=== PATIENT | female | born 1980 | race African-American/Black ===

== ENCOUNTER 2016-07-17 10:30 | Emergency (ER) | payer OTHER ==
[~2016-07-17] VITALS: Ht 154.9 cm; Wt 95.3 kg
--- NOTE | 2016-07-17 12:23 | ED GENERAL ADULT ---
History of Present Illness General Chief Complaint: General Adult Stated Complaint: GOLD, LOWER RT ABDOMINAL PAIN X 4 DAYS Source: patient Exam Limitations: no limitations Vital Signs & Intake/Output Vital Signs & Intake/Output Vital Signs Date Time Temp Pulse Resp B/P Pulse O2 O2 Flow FiO2 Ox Delivery Rate 07/17 1332 98.2 84 18 153/83 100 Room Air 07/17 1107 98.4 78 18 154/98 100 Room Air Allergies Coded Allergies: No Known Drug Allergies (07/17/16) Reconcile Medications No Known Home Medications Triage Note: C/O R SIDED ABODMINAL PAIN WITH NAUSEA X 4 DAYS. STATES PERIOD IS 2 WEEKS LATE. HOME TEST DONE 2 DAYS AGO WAS NEGATIVE. ALOS REPORTS INCREASED URINATION. Triage Nurses Notes Reviewed? yes Onset: Gradual Duration: day(s): (4) Timing: remote history Injury Environment: home Severity: moderate Severity Numbers: 4 No Modifying Factors: none : No Patient currently breastfeeds: No HPI: Patient is a 36-year-old female presenting to the emergency department with chief complaint of right lower quadrant pain 4 days that has been improving over the past 2 days. Pain currently 4 out of 10 and crampy in nature. She has reports she is late 2 weeks for her menstrual period. She took a test at home and it was negative. Denies any vaginal discharge patient does report urinary frequency but denies any dysuria. No hematuria. Chest reports a frontal and temporal headache as throbbing in nature currently mild, denies taking anything today to help with symptoms. She did take some Midol the other day which did not help. Denies any visual changes. No neck pain or fevers. Denies nausea vomiting. So eating and drinking without difficulty. Past History Travel History Traveled to [place] past 21 day No Medical History Any Pertinent Medical History? see below for history Surgical History Surgical History: non-contributory Psychosocial History What is your primary language Icelandic Tobacco Use: Never used ETOH Use: occasional use Family History Hx Contributory? No Review of Systems Review of Systems Constitutional: Reports: no symptoms. Comments Review of systems: See HPI, All other systems negative. Constitutional, no chills fever or weight loss HEENT: No visual changes no sore throat no congestion Cardiovascular: No chest pain ,palpitation Skin, no jaundice no rashes Respiratory: No dyspnea cough sputum or hemoptysis GI: No nausea no vomiting : No dysuria No hematuria Muscle skeletal: no back pain, no neck pain, Neurologic: No numbness no confusion Psych: No stress anxiety or depression,. Heme/endocrine: No bruising no bleeding no polyuria or polydipsia Immunology: No splenectomy or history of AIDS Physical Exam Physical Exam General Appearance: well developed/nourished, no apparent distress, alert, awake , comfortable Comments: Well-developed well-nourished person in no acute distress HEENT: Normal EENT exam, extraocular motion intact, no nystagmus. Pupils equally round and reactive to light and accommodation. Nose is atraumatic. External auditory canal and Tympanic membranes clear. Pharynx normal. No swelling or edema. Neck: Supple, no lymphadenopathy, normal range of motion without pain or tenderness. Negative meningeal signs. Back: Nontender, no CVA tenderness. Full range of motion Cardiovascular: Regular rate and rhythms no murmurs rubs or gallops, normal JVP Respiratory: Chest nontender. No respiratory distress.breath sounds clear to auscultation bilaterally Abdomen: Soft, minimal tenderness to palpation in the right lower quadrant, no rebound or guarding, nondistended, no appreciable organomegaly. Normal bowel sounds. No ascites Extremity: No edema, Neuro: Alert oriented x3, motor sensory normal, cranial nerves II through XII grossly intact. Cerebellar testing is unremarkable. Skin: No appreciable rash on exposed skin, skin is warm and dry. Psych: Mood and affect is normal, memory and judgment is normal. Core Measures ACS in differential dx? No CVA/TIA Diagnosis: No Severe Sepsis Present: No Septic Shock Present: No Progress Differential Diagnoses I considered the following diagnoses in my evaluation of the patient: Dehydration, likely abnormality, appendicitis, ovarian cyst, migraine headache, tension headache, viral syndrome Plan of Care: Orders Procedure Date/time Status C-REACTIVE PROTEIN 07/17 1233 Complete COMPREHENSIVE METABOLIC PANEL 07/17 1233 Complete CBC WITHOUT DIFFERENTIAL 07/17 1233 Complete URINE 07/17 1109 Complete URINALYSIS 07/17 1109 Complete Laboratory Tests 07/17/16 1239: Anion Gap 9, Estimated GFR > 60, BUN/Creatinine Ratio 19.0, Glucose 92, Calcium 9.0, Total Bilirubin 0.3, AST 16, ALT 29, Alkaline Phosphatase 66, C-Reactive Prot, Quant < 0.5, Total Protein 7.1, Albumin 4.0, Globulin 3.1, Albumin/ Globulin Ratio 1.3, CBC w Diff NO MAN DIFF REQ, RBC 4.31, MCV 80.1 L, MCH 26.8 L, RDW 14.6 H, MPV 7.3 L, Gran % 58.1, Lymphocytes % 33.7, Monocytes % 7.1, Eosinophils % 0.8, Basophils % 0.3, Absolute Granulocytes 3.8, Absolute Lymphocytes 2.2, Absolute Monocytes 0.5, Absolute Eosinophils 0.1, Absolute Basophils 0, PUBS MCHC 33.5 07/17/16 1205: Urine Color YEL, Urine Clarity CLEAR, Urine pH 6.0, Ur Specific [place] 1.025, Urine Protein NEG, Urine Ketones NEG, Urine Nitrite NEG, Urine Bilirubin NEG, Urine Urobilinogen 0.2, Ur Leukocyte Esterase NEG, Ur Microscopic EXAM NOT REQUIRED, Urine Hemoglobin NEG, Urine Glucose NEG, Urine Test NEGATIVE Initial ED EKG: none Comments: 07/17/2016 1:15:46 PM on arrival patient is afebrile in no acute distress, mild tenderness to palpation in the right lower quadrant. Neurologically intact. No meningeal signs. Patient does have history of ovarian cysts she reports this feels similar. Unlikely appendicitis as patient has reported decreasing in pain over the past 2 days. We will assess CBC, CMP, urinalysis, urine . Patient medicated with IV fluids, IV Toradol for symptoms and headache. 07/17/2016 1:55:46 PM on reevaluation patient reports she is feeling much better. No longer has pain. Headache is gone. She was informed of all lab work results. Afebrile, no elevation in white blood cell count and CRP is negative. No indication for imaging at this time. She was encouraged to follow up with OB /GENERATOR OPERATOR in terms of her change in menstrual period. She is nontoxic and compliant with plan. She was educated on signs and symptoms to return. Departure Departure Time of Disposition: 1316 Disposition: HOME OR SELF CARE Condition: Stable Clinical Impression Primary Impression: Abdominal pain Qualifiers: Abdominal location: right lower quadrant Qualified Code: R10.31 - Right lower quadrant pain Secondary Impressions: Dysmenorrhea Headache Qualifiers: Headache type: unspecified Headache chronicity pattern: unspecified pattern Intractability: not intractable Qualified Code: R51 - Headache Referrals: PATIENT HAS NO PRIMARY CARE DR (PCP/Family) Additional Instructions: Follow-up with your primary care physician and your FIELD MAP TECHNICIAN call to make an appointment. Increase fluids. Take care status prescribed for headaches. Return for worsening symptoms or concerns. Departure Forms: Customer Survey D/C INS-APPENDICITIS EXCLUSION General Discharge Information Prescriptions: Current Visit Scripts Ketorolac Tromethamine 1 TAB PO Q6P PRN PAIN #15 TAB GIVEN DOSE IN ER Critical Care Note Critical Care Note Critical Care Time: non-applicable
[2016-07-17 12:52] LABS: ABSOLUTE BASOPHIL COUNT 0 /CUMM (0.0-0.2); ABSOLUTE EOSINOPHIL COUNT 0.1 /CUMM (0.0-0.7); ABSOLUTE MONOCYTE COUNT 0.5 /CUMM (0.10-0.60)
[2016-07-17 12:57] LABS: ABSOLUTE GRANULOCYTE CT 3.8 /CUMM (1.4-6.5); ABSOLUTE LYMPH COUNT 2.2 /CUMM (1.2-3.4); BASOPHIL % 0.3 % (0.0-2.0); EOSINOPHIL % 0.8 % (0-5); GRANULOCYTE % 58.1 % (42.2-75.2); HEMATOCRIT 34.5 % (37-47); MEAN CORPUSCULAR HGB 26.8 PG (27.0-31.0); MEAN CORPUSCULAR HGB CONC 33.5 G/DL (33.0-37.0); MEAN CORPUSCULAR VOLUME 80.1 FL (81.0-99.0); MEAN PLATELET VOLUME 7.3 FL (7.4-10.4); PLATELET COUNT 308 /CUMM (130-400); RBC DISTRIBUTION WIDTH 14.6 % (11.5-14.5); RED BLOOD CELL CT 4.31 /CUMM (4.20-5.40); WHITE BLOOD CELL COUNT 6.5 /CUMM (4.8-10.8)
[2016-07-17 13:32] VITALS: BP 153/83
[2016-07-17] MEDS ORDERED: KETOROLAC TROME10 M1 PO (13:57)
== END 2016-07-17 14:18 ==
LOC: ERH 10:30
PROVIDERS: Physician Assistant
DX: N94.6 Dysmenorrhea, unspecified (principal); R51 Headache
CPT/HCPCS: 81003; 81025; 96374; J1885